=== PATIENT | female | born 1935 | race Caucasian/White ===

== ENCOUNTER → 2017-05-21 | Outpatient (CLI) | payer MEDICARE, OTHER | END | disposition home or self-care (01) | LOC: GMAB 14:38 | PROVIDERS: ATTEND Family Medicine | DX: R53.82 Chronic fatigue, unspecified (principal); R30.0 Dysuria ==

== ENCOUNTER → 2017-08-15 | Outpatient (CLI) | payer MEDICARE, OTHER | END | disposition home or self-care (01) | LOC: GMA 20:14 | PROVIDERS: ATTEND Nurse Practitioner Family | DX: J06.9 Acute upper respiratory infection, unspecified (principal) ==

== ENCOUNTER → 2017-10-29 | Outpatient (CLI) | payer MEDICARE, OTHER ==
--- NOTE | 2017-10-29 18:26 | CT ---
EXAM DESCRIPTION: Head CLINICAL HISTORY: TENSION-TYPE HEADACHE COMPARISON: None Available TECHNIQUE: Contiguous axial CT images of the head were obtained. Coronal and sagittal reconstructions were created from the axial data. This exam was performed according to our departmental dose-optimization program, which includes automated exposure control, adjustment of the mA and/or kV according to patient size and/or use of iterative reconstruction technique. FINDINGS: Visualized paranasal sinuses are clear. There is no evidence of acute mass, mass effect, midline shift or hemorrhage. The ventricles and extra-axial CSF spaces are unremarkable. The brain parenchyma appears normal for the patient's age. No acute abnormalities of the bones is seen. IMPRESSION: No acute intracranial abnormality. Electronically signed by: Julio Reyez 10/29/2017 6:24 PM CDT
--- NOTE | 2017-10-29 18:29 | CT ---
EXAM DESCRIPTION: Maxillofacial CLINICAL HISTORY: 81 years Female CONTUSION OF OTHER PART OF HEAD COMPARISON: None. TECHNIQUE: Contiguous axial images obtained through the maxillofacial region without IV contrast. Reformatted images obtained. This exam was performed according to our department optimization program which includes automated exposure control, adjustment of the mA and/or kv according to patient size and/or use of iterative reconstruction technique. FINDINGS: Small amount of fluid is in the sphenoid sinus. The paranasal sinuses are otherwise clear. The post septal orbits appear unremarkable. No facial bone fractures are identified. IMPRESSION: Paranasal sinusitis. No facial bone fractures are identified. Electronically signed by: Julio Reyez 10/29/2017 6:27 PM CDT
== END | disposition home or self-care (01) ==
LOC: CT 16:23
PROVIDERS: ATTEND Family Medicine
DX: G44.209 Tension-type headache, unspecified, not intractable (principal); S00.83XA Contusion of other part of head, initial encounter

== ENCOUNTER → 2018-04-08 | Outpatient (CLI) | payer MEDICARE, OTHER | LOC: GMAE 14:54 | PROVIDERS: ATTEND Family Medicine | DX: J06.9 Acute upper respiratory infection, unspecified (principal) ==

== ENCOUNTER 2018-08-24 13:09 | Emergency (ER) | payer MEDICARE, OTHER ==
[2018-08-24 13:45] VITALS: TEMP 97.9
--- NOTE | 2018-08-24 14:34 | RAD ---
EXAM DESCRIPTION: Abdomen Series CLINICAL HISTORY: 82 years Female, generalized weakness COMPARISON: CTA chest dated November 17, 2015. TECHNIQUE: Supine and erect radiographs of the abdomen with the radiograph of the chest. FINDINGS: CHEST: The trachea appears midline. The cardiomediastinal silhouette is within normal limits. The pulmonary vasculature appears unremarkable. No acute consolidation or pleural effusion. Atelectatic changes are noted at the left lung base, could be sequela of prior scarring. No air under the domes of diaphragm. ABDOMEN: Multiple air distended bowel loops are noted throughout the abdomen with gas in the distal rectum suggesting a nonobstructive bowel gas pattern. No evidence of air-fluid levels. No abnormal calcification is identified. Moderate fecal burden is noted. Visualized lumbar spine demonstrates severe degenerative changes of the lower lumbar spine with bilateral facet hypertrophy and moderate bilateral SI joint degenerative changes. IMPRESSION: 1. No acute cardiopulmonary process. 2. No acute intra-abdominal process. Electronically signed by: Cliff Ferreira MD 08/24/2018 2:33 PM LOOPER OPERATOR
--- NOTE | 2018-08-24 15:09 | ED.PDOC ---
History of Present Illness - General Chief Complaint: General Stated Complaint: generalized weakness Time Seen by Provider: 08/24/18 13:12 Source: patient Exam Limitations: no limitations - History of Present Illness Initial Comments: the patient is an 82-year-old female presenting to the emergency room secondary to a feeling of generalized weakness and fatigue. 2 days ago she had some nausea and vomiting. She has had a history of anemia in the past. No definite fevers. No sore throat. No diarrhea. No abdominal pain. No urinary symptoms or respiratory symptoms. Timing/Duration: unsure Severity: mild Improving Factors: nothing Worsening Factors: nothing Associated Symptoms: malaise, weakness Allergies/Adverse Reactions: Allergies Sulfa Antibiotics Allergy (Verified 10/26/15 20:12) Home Medications: Ambulatory Orders Meclizine HCl 25 mg PO TID PRN #20 tab 05/31/15 Albuterol Inhaler [Ventolin Hfa Inhaler] 2 puff INH PRN PRN 10/26/15 Arformoterol Tartrate [Brovana] 2 ml INH BID 10/26/15 Citalopram Hydrobromide 20 mg PO DAILY 10/26/15 Furosemide 20 mg PO BID 10/26/15 Loratadine 10 mg PO DAILY 10/26/15 Zoledronic Acid [Reclast] 5 mg IV ONCE 10/26/15 Potassium Chloride [Potassium Chloride ER] 10 meq PO DAILYBK 10/27/15 Ondansetron Tab [Zofran Tab] 4 mg PO BID PRN #8 tab 11/17/15 Famotidine 20 mg PO DAILY #30 tab 08/24/18 Ondansetron [Zofran Odt] 4 mg PO Q4H PRN #10 tab 08/24/18 cloNAZepam [Klonopin] 0.5 mg DAILY PRN 08/24/18 Review of Systems - Review of Systems Constitutional: States: malaise, weakness - generalized EENTM: States: no symptoms reported Respiratory: States: no symptoms reported Cardiology: States: no symptoms reported Gastrointestinal/Abdominal: States: nausea, vomiting - 1 time Genitourinary: States: no symptoms reported Musculoskeletal: States: no symptoms reported Skin: States: no symptoms reported Neurological: States: no symptoms reported Endocrine: States: no symptoms reported All other Systems: No Change from Baseline Past Medical History (General) - Patient Medical History Hx Seizures: No Hx Stroke: No Hx Dementia: No Hx Asthma: Yes Hx of COPD: Yes Hx Cardiac Disorders: No Hx Congestive Heart Failure: Yes Hx Pacemaker: No Hx Hypertension: No Hx Thyroid Disease: No Hx Diabetes: No Hx Gastroesophageal Reflux: Yes Hx Renal Disease: No Hx Cancer: Yes - colon Hx of HIV: No Hx Hepatitis C: No Hx MRSA: No Surgical History: other - Vaccination History Hx Tetanus, Diphtheria Vaccination: No - Pt not sure about TDAP status Hx Influenza Vaccination: Yes Hx Pneumococcal Vaccination: Yes Immunizations Up to Date: Yes - Social History Hx Tobacco Use: Yes Years Tobacco Use: 50 Cigarettes Packs Per Day: 1 Hx Chewing Tobacco Use: No Hx Alcohol Use: Yes - 1-2 beers per week Hx Substance Use: No Hx Substance Use Treatment: No Hx Depression: No Hx Physical Abuse: No Hx Emotional Abuse: No Hx Suspected Abuse: No - Female History Patient : No Family Medical History - Family History Mother Family History: Unknown Living Status: Physical Exam - Physical Exam General Appearance: Alert, Comfortable, No apparent distress Eye Exam: bilateral normal Ears, Nose, Throat: hearing grossly normal, normal ENT inspection, normal pharynx Neck: full range of motion, supple Respiratory: lungs clear, normal breath sounds, no respiratory distress, no accessory muscle use Cardiovascular/Chest: normal peripheral pulses, regular rate, rhythm, no edema Peripheral Pulses: radial,right: 2+, radial,left: 2+ Gastrointestinal/Abdominal: non tender, soft Rectal Exam: deferred Back Exam: no CVA tenderness, no vertebral tenderness Extremity: non-tender, normal inspection, no pedal edema, normal capillary refill Neurologic: clam shucking machine tender II-XII nml as tested, alert, normal mood/affect, oriented x 3 Skin Exam: normal color Comments: Vital Signs - 8 hr 08/24/18 08/24/18 08/24/18 13:17 13:19 14:30 Temperature 97.9 F Pulse Rate [ 64 67 63 Left Radial] Respiratory 18 18 16 Rate Blood Pressure 155/84 154/60 [Left Arm] O2 Sat by Pulse 98 91 L Oximetry Laboratory Tests 08/24/18 08/24/18 08/24/18 13:50 13:50 14:30 WBC 5.5 RBC 4.27 Hgb 13.1 Hct 39.8 MCV 93.2 MCH 30.8 MCHC 33.0 RDW 13.5 Plt Count 235 MPV 8.2 Absolute Neuts (auto) 2.70 Absolute Lymphs (auto) 1.80 Absolute Monos (auto) 0.70 Absolute Eos (auto) 0.20 Absolute Basos (auto) 0.10 Neutrophils % 50.1 Lymphocytes % 33.4 Monocytes % 12.1 H Eosinophils % 2.8 Basophils % 1.6 Sodium 136 Potassium 3.9 Chloride 98 L Carbon Dioxide 29 Anion Gap 12.9 BUN 13 Creatinine 0.65 BUN/Creatinine Ratio 20.0 Random Glucose 99 Serum Osmolality 272.1 L Calcium 8.6 Magnesium 2.3 Total Bilirubin 0.6 AST 17 ALT 10 Alkaline Phosphatase 52 Creatine Kinase 58 CK-MB (CK-2) 1.2 Troponin I < 0.02 B-Natriuretic Peptide 166.0 H Serum Total Protein 6.5 Albumin 3.8 Globulin 2.7 Albumin/Globulin Ratio 1.4 Urine Color Yellow Urine Appearance Sl cloudy Urine pH 7.5 Ur Specific [place] 1.015 Urine Protein Negative Urine Glucose (UA) Negative Urine Ketones Negative Urine Blood Negative Urine Nitrite Negative Urine Bilirubin Negative Urine Urobilinogen 0.2 Ur Leukocyte Esterase Negative Urine RBC 0 Urine WBC 0 Ur Epithelial Cells 0-1 Urine Bacteria 0 acute abdominal series fails to show any acute pathology. She does have some constipation. Rapid flu is negative. Progress - Progress Progress: 08/24/18 15:09 the patient's an 82-year-old female presenting to the emergency room secondary to a feeling of generalized weakness. It does appear that she is getting over what is most likely a viral gastroenteritis. She does need to keep herself well hydrated. Additionally I would recommend 20 or 30 minutes of sunlight exposure daily on warm days. This can help reduce fatigue and achiness as well. The patient does have some mild constipation on x-ray and I would recommend that she take a dose of MiraLAX daily for the next week. ER warnings were given for any worsening. Laboratory work and x-ray are otherwise reassuring. Keep follow-up with primary care doctor otherwise. Departure - Departure Clinical Impression: Viral gastroenteritis Disposition: Discharge to Home or Self Care Condition: Fair Departure Forms: ED Discharge - Pt. Copy, Patient Portal Self Enrollment Instructions: Viral Gastroenteritis, Adult (DC) Diet: bland diet Activity: increase activity as tolerated Referrals: CHRISTY FLORES MD [Primary Care Provider] - 1-2 Weeks Prescriptions: Famotidine 20 mg PO DAILY #30 tab Ondansetron [Zofran Odt] 4 mg PO Q4H PRN #10 tab PRN Reason: Vomiting Home Medications: Ambulatory Orders Meclizine HCl 25 mg PO TID PRN #20 tab 05/31/15 Albuterol Inhaler [Ventolin Hfa Inhaler] 2 puff INH PRN PRN 10/26/15 Arformoterol Tartrate [Brovana] 2 ml INH BID 10/26/15 Citalopram Hydrobromide 20 mg PO DAILY 10/26/15 Furosemide 20 mg PO BID 10/26/15 Loratadine 10 mg PO DAILY 10/26/15 Zoledronic Acid [Reclast] 5 mg IV ONCE 10/26/15 Potassium Chloride [Potassium Chloride ER] 10 meq PO DAILYBK 10/27/15 Ondansetron Tab [Zofran Tab] 4 mg PO BID PRN #8 tab 11/17/15 Famotidine 20 mg PO DAILY #30 tab 08/24/18 Ondansetron [Zofran Odt] 4 mg PO Q4H PRN #10 tab 08/24/18 cloNAZepam [Klonopin] 0.5 mg DAILY PRN 08/24/18 Additional Instructions: the patient's an 82-year-old female presenting to the emergency room secondary to a feeling of generalized weakness. It does appear that she is getting over what is most likely a viral gastroenteritis. She does need to keep herself well hydrated. Additionally I would recommend 20 or 30 minutes of sunlight exposure daily on warm days. This can help reduce fatigue and achiness as well. The patient does have some mild constipation on x-ray and I would recommend that she take a dose of MiraLAX daily for the next week. ER warnings were given for any worsening. Laboratory work and x-ray are otherwise reassuring. Keep follow-up with primary care doctor otherwise.
[2018-08-24 15:52] VITALS: BP 121/61; O2SAT 90
== END 2018-08-24 15:30 | disposition home or self-care (01) ==
LOC: ER 13:09
DX: A08.4 Viral intestinal infection, unspecified (principal); J44.9 Chronic obstructive pulmonary disease, unspecified; I50.9 Heart failure, unspecified; K21.9 Gastro-esophageal reflux disease without esophagitis; Z87.891 Personal history of nicotine dependence; Z85.038 Personal history of other malignant neoplasm of large intestine; Z79.899 Other long term (current) drug therapy; Z88.2 Allergy status to sulfonamides

== ENCOUNTER → 2019-05-19 | Outpatient (CLI) | payer MEDICARE, OTHER | LOC: YCHH 13:13 | PROVIDERS: ATTEND Family Medicine | DX: D64.9 Anemia, unspecified (principal); E78.5 Hyperlipidemia, unspecified; N18.9 Chronic kidney disease, unspecified; E03.9 Hypothyroidism, unspecified; J44.9 Chronic obstructive pulmonary disease, unspecified ==

== ENCOUNTER → 2020-06-06 | Outpatient (CLI) | payer MEDICARE, OTHER | LOC: GMAE 15:22 | PROVIDERS: ATTEND Family Medicine | DX: Z79.899 Other long term (current) drug therapy (principal); E78.5 Hyperlipidemia, unspecified ==